=== PATIENT | female | born 1965 | race African-American/Black ===

== ENCOUNTER 2018-02-26 05:41 | Emergency (ER) | payer BC ==
[~2018-02-26] VITALS: Ht 165.1 cm; Wt 58.9 kg
[~2018-02-26 05:41] MED LIST: ACET325T14 PO; ASPI1TAB31 PO; OMEP20CA9 PO; OXYC-307 PO; TIZA4TAB PO
[2018-02-26 05:42] VITALS: BP 135/78
[2018-02-26] MEDS ORDERED: hydrOXYzine 25 MG/ML IM STA (06:09)
== END 2018-02-26 08:43 | disposition home or self-care (01) ==
LOC: ED 08:40
DX: L29.8 Other pruritus (principal)
CPT/HCPCS: 96372; 99283; J3410

== ENCOUNTER → 2018-04-10 | Outpatient (CLI) | payer BC | END | disposition home or self-care (01) | LOC: CFH 11:47 | PROVIDERS: ATTEND Family Medicine | DX: N60.02 Solitary cyst of left breast (principal); N63.20 Unspecified lump in the left breast, unspecified quadrant; Z80.3 Family history of malignant neoplasm of breast | CPT/HCPCS: 77065 ==

== ENCOUNTER 2019-10-21 10:53 | Outpatient (CLI) | payer BC ==
[~2019-10-21 10:53] MED LIST changes: -TIZA4TAB PO; +TIZA4TAB2 PO
== END 2019-10-21 23:59 | disposition home or self-care (01) ==
LOC: CFH 10:53
PROVIDERS: ATTEND Nurse Practitioner Family
DX: Z12.31 Encounter for screening mammogram for malignant neoplasm of breast (principal); N64.89 Other specified disorders of breast
CPT/HCPCS: 77063; 77067

== ENCOUNTER 2020-10-22 12:24 | Outpatient (CLI) | payer BC ==
[~2020-10-22 12:24] MED LIST changes: -OXYC-307 PO; +OXYC-380 PO
== END 2020-10-22 23:59 | disposition home or self-care (01) ==
LOC: CFH 12:24
PROVIDERS: ATTEND Family Medicine
DX: Z12.31 Encounter for screening mammogram for malignant neoplasm of breast (principal)
CPT/HCPCS: 77063; 77067